=== PATIENT | male | born 1950 | race Caucasian/White ===

== ENCOUNTER 2021-02-24 16:09 | Inpatient (IN) | payer OTHER ==
[~2021-02-24] VITALS: Ht 182.8 cm; Wt 96.7 kg
[~2021-02-24 16:09] MED LIST: AMLODIPINE BES2.5 MG PO; ASPIRIN81 M1 PO; B-121000 MC1 PO; DIABETA5 MG PO; FLUOXETINE HCL60 MG PO; FLUTICASON0.05 MG/AC NAS; IMDUR SA60 M1 PO; LEVETIRACETAM750 MG PO; LOPRESSOR50 M1 PO; LOSARTAN POTASS50 M1 PO; METFORMIN1000 MG PO; NEURONTIN600 MG PO; NIACIN PO; PRILOSEC20 M2 PO; PRIMIDONE250 MG PO; TRAZODONE100 MG PO
[2021-02-24 16:15] VITALS: BP 127/76
[2021-02-24 21:30] VITALS: BP 124/66
[2021-02-24] MEDS ORDERED: ELIQUIS5 M1 PO (21:47)
[2021-02-24] MEDS ORDERED: MULTIVITAMIN1 EACH PO (21:48)
[2021-02-24 23:55] VITALS: BP 148/82
[2021-02-25 06:17] LABS: BASO # 0.1 10*3/uL (0.0-0.1); BASO % 0.8 % (0.0-1.0); EOS # 0.4 10*3/uL (0.0-0.4); EOS % 5.3 % (1.0-4.0); HEMATOCRIT 36.2 % (42.0-52.0); LYMPH # 1.7 10*3/uL (1.3-4.4); LYMPH % 19.8 % (27.0-41.0); MEAN CELL VOLUME 74.9 fl (80.0-94.0); MEAN CORPUSCULAR HGB 22.2 pg (27.0-31.0); MEAN CORPUSCULAR HGB CONC 29.6 g/dl (33.0-37.0); MEAN PLATELET VOLUME 9.2 fl (9.6-12.3); MONO % 12.2 % (3.0-9.0); NEUT # 5.1 10*3/uL (2.3-7.9); NEUT % 61.2 % (47.0-73.0); PLATELET COUNT AUTOMATED 423 10*3/uL (130-400); RED BLOOD COUNT 4.83 10*6/uL (4.50-5.90); RED CELL DISTRI WIDTH 18.1 % (0-14.5); WHITE BLOOD COUNT 8.4 10*3/uL (4.8-10.8)
[2021-02-25 06:29] LABS: ACT PARTIAL THROMBO TIME 26.1 SECONDS (20.0-32.1)
[2021-02-25 06:36] LABS: ALBUMIN 2.8 gm/dl (3.1-4.5); BUN 14 mg/dl (7-24); CHLORIDE 103 mmol/L (98-107); POTASSIUM 3.8 mmol/L (3.5-5.1); SODIUM 136 mmol/L (136-145)
[2021-02-25 06:39] LABS: ALKALINE PHOSPHATASE 137 U/L (45-117); CREATININE 0.92 mg/dL (0.70-1.30); SGOT/AST 7 IU/L (3-35); SGPT/ALT 15 U/L (12-78); TOTAL PROTEIN 7.7 gm/dL (6.4-8.2)
[2021-02-25 08:00] VITALS: BP 135/57
[2021-02-25 12:00] VITALS: BP 156/81
[2021-02-25 16:00] VITALS: BP 119/64
[2021-02-25 20:00] VITALS: BP 110/62
[2021-02-26] VITALS: BP 105/59
[2021-02-26 08:00] VITALS: BP 127/66
[2021-02-26 12:00] VITALS: BP 118/70
[2021-02-26 16:00] VITALS: BP 110/62
== END 2021-02-26 16:30 | disposition home health service (06) | DRG 554 ==
LOC: ED 16:09 → 5E 18:28 → EDHOLD 18:28 → 5E 19:50
PROVIDERS: Hospitalist; ADMIT Internal Medicine; ATTEND Internal Medicine
DX: M16.12 Unilateral primary osteoarthritis, left hip (principal); E44.0 Moderate protein-calorie malnutrition; S05.92XA Unspecified injury of left eye and orbit, initial encounter; I10 Essential (primary) hypertension; E78.2 Mixed hyperlipidemia; D50.9 Iron deficiency anemia, unspecified; R74.8 Abnormal levels of other serum enzymes; S51.001A Unspecified open wound of right elbow, initial encounter; E11.65 Type 2 diabetes mellitus with hyperglycemia; D47.3 Essential (hemorrhagic) thrombocythemia; G20 Parkinson's disease; R29.6 Repeated falls; Y93.89 Activity, other specified; Y92.89 Other specified places as the place of occurrence of the external cause; Z82.49 Family history of ischemic heart disease and other diseases of the circulatory system; W18.39XA Other fall on same level, initial encounter; Y99.8 Other external cause status; Z68.28 Body mass index [BMI] 28.0-28.9, adult